=== PATIENT | male | born 1990 | race African-American/Black ===

== ENCOUNTER 2016-09-02 08:57 | Emergency (ER) | payer OTHER ==
[~2016-09-02] VITALS: Ht 182.9 cm; Wt 71.4 kg
[~2016-09-02 08:57] MED LIST: ENDOCET 5-3251 EACH; MIRALAX255 GM PO; NAPROXEN SODIU550 MG; NOHOMEMEDS; VICODIN,LORT1 TABLET PO
[2016-09-02 09:45] LABS: EOSINOPHIL (%) 0.4 % (0-5); HEMATOCRIT 40.5 % (38.0-50.0); IMMATURE GRANULOCYTE (%) 0.2 % (0.0-0.7); INSTRUMENT ABS NEUTROPHIL CT 2.6 K/uL; MCH 30.6 PG (29.0-34.0); MCHC 35.1 G/DL (30.0-36.0); MCV 87.3 FL (86-99); MEAN PLAT.VOLUME 10.4 uM^3 (9.0-12.4); MONOCYTE (%) 10.6 % (3-12); MONOCYTE COUNT 0.6 K/uL (0-0.8); NEUTROPHIL COUNT 2.6 K/uL (1.8-6.4); PLATELET COUNT 190 K/uL (156-360); RBC DIS.WIDTH-CV 12.7 % (11.8-14.6); RBC DIS.WIDTH-SD 40.1 % (39-53); RED BLOOD COUNT 4.64 M/uL (4.00-5.50); WHITE BLOOD COUNT 5.2 K/uL (4.1-10.2)
[2016-09-02 09:48] LABS: ADD MIUA? NO; BILIRUBIN NEGATIVE; BLOOD NEGATIVE; COLOR YELLOW ((YELLOW)); GLUCOSE (STRIP) NEGATIVE; KETONES NEGATIVE; LEUKOCYTES NEGATIVE; NITRITE NEGATIVE; PROTEIN (STRIP) NEGATIVE; SPECIFIC GRAVITY 1.015 (1.000-1.030); UROBILINOGEN 0.2 MG/DL (0.2-1.0)
[2016-09-02 09:55] LABS: CHLORIDE 106 mEq/L (99-109); POTASSIUM 3.4 mEq/L (3.7-5.4); SODIUM 143 mEq/L (136-147)
[2016-09-02 09:57] LABS: GLUCOSE 76 mg/dL (70-99)
[2016-09-02 09:58] LABS: ANION GAP 9 MEQ/L (2-14)
[2016-09-02 09:59] LABS: TOTAL BILIRUBIN 0.6 mg/dL (0.0-1.0)
[2016-09-02 10:00] LABS: ALKALINE PHOSPHATASE 41 IU/L (3-129)
[2016-09-02 10:01] LABS: GFR ESTIMATE (CALCULATED) > 59 mL/min/
[2016-09-02 10:02] LABS: UREA NITROGEN (BUN) 12 mg/dL (9-23)
[2016-09-02 10:04] LABS: LIPASE 23 U/L (1.0-51.0)
[2016-09-02 11:00] VITALS: BP 127/84
[2016-09-04 13:46] LABS: CHLAMYDIA TRACHOMATIS NEGATIVE; NEISSERIA GONORRHOEAE NEGATIVE
== END 2016-09-02 11:01 | disposition home or self-care (01) ==
LOC: EME 08:57
PROVIDERS: Physician Assistant
DX: N34.2 Other urethritis (principal); R10.9 Unspecified abdominal pain; R19.7 Diarrhea, unspecified; Z11.3 Encounter for screening for infections with a predominantly sexual mode of transmission; F17.200 Nicotine dependence, unspecified, uncomplicated
CPT/HCPCS: 80053; 81003; 83690; 85025; 87491; 87591; 99281; 99284; J0696

== ENCOUNTER 2017-05-20 11:58 | Emergency (ER) | payer OTHER ==
[~2017-05-20] VITALS: Ht 182.9 cm; Wt 69.4 kg
[2017-05-20] MEDS ORDERED: MOTRIN600 MG PO (16:46)
[2017-05-20] MEDS ORDERED: ROBAXIN750 MG PO (16:46)
[2017-05-20] MEDS ORDERED: BACITRACIN28.4 GM TP (16:47)
[2017-05-20 17:09] VITALS: BP 116/71
== END 2017-05-20 17:13 | disposition home or self-care (01) ==
LOC: EME 11:58
DX: S06.0X0A Concussion without loss of consciousness, initial encounter (principal); S00.83XA Contusion of other part of head, initial encounter; S01.419A Laceration without foreign body of unspecified cheek and temporomandibular area, initial encounter; S16.1XXA Strain of muscle, fascia and tendon at neck level, initial encounter; V49.9XXA Car occupant (driver) (passenger) injured in unspecified traffic accident, initial encounter; F17.200 Nicotine dependence, unspecified, uncomplicated
CPT/HCPCS: 99281; 99284

== ENCOUNTER 2017-08-03 13:54 | Emergency (ER) | payer OTHER ==
[~2017-08-03] VITALS: Ht 182.9 cm; Wt 72.3 kg
[~2017-08-03 13:54] MED LIST changes: +BACITRACIN28.4 GM TP; +MOTRIN600 MG PO; +ROBAXIN750 MG PO
[2017-08-03 14:25] LABS: HEMATOCRIT 38.9 % (38.0-50.0); HEMOGLOBIN 14.2 G/DL (12.5-16.6); MCH 31.7 PG (29.0-34.0); MCHC 36.5 G/DL (30.0-36.0); MCV 86.8 FL (86-99); PLATELET COUNT 202 K/uL (156-360); RBC DIS.WIDTH-CV 11.8 % (11.8-14.6); RBC DIS.WIDTH-SD 37.5 % (39-53); RED BLOOD COUNT 4.48 M/uL (4.00-5.50); WHITE BLOOD COUNT 10.5 K/uL (4.1-10.2)
[2017-08-03 14:37] LABS: CHLORIDE 105 mEq/L (99-109); POTASSIUM 3.5 mEq/L (3.7-5.4); SODIUM 139 mEq/L (136-147)
[2017-08-03 14:39] LABS: GLUCOSE 101 mg/dL (70-99)
[2017-08-03 14:43] LABS: CREATININE 0.9 mg/dL (0.6-1.3); GFR ESTIMATE (CALCULATED) > 59 mL/min/ (58.99-99999)
[2017-08-03 14:44] LABS: UREA NITROGEN (BUN) 9 mg/dL (9-23)
[2017-08-03 15:29] LABS: TROP-I INTERPRETATION NEGATIVE; TROPONIN-I < 0.01 ng/mL (0.0-0.30)
[2017-08-03] MEDS ORDERED: VENTOLIN HFA18 GM IH (16:44)
[2017-08-03] MEDS ORDERED: FLONASE16 G1 BOTH NARES (16:49)
[2017-08-03] MEDS ORDERED: MUCINEX DM ER1 EACH PO (16:49)
[2017-08-03 16:58] VITALS: BP 110/68
== END 2017-08-03 17:00 | disposition home or self-care (01) ==
LOC: EME 13:54
PROVIDERS: Nurse Practitioner Family
DX: R07.9 Chest pain, unspecified (principal); R06.02 Shortness of breath; F17.200 Nicotine dependence, unspecified, uncomplicated
CPT/HCPCS: 71046; 80048; 84484; 85027; 93005; 99281; 99284